=== PATIENT | male | born 1945 | race Caucasian/White ===

== ENCOUNTER 2019-06-19 06:00 | Outpatient (RCR) | payer MEDICARE, SELFPAY | END 2019-06-23 23:59 | disposition home or self-care (01) | LOC: GPT 06:00 | PROVIDERS: Family Provider Family Medicine; PCP Family Medicine; Referring Provider Nurse Practitioner Family; Visit Provider Nurse Practitioner Family | DX: M54.5 Low back pain (principal); M25.60 Stiffness of unspecified joint, not elsewhere classified | CPT/HCPCS: 97110; 97140; 97161; 97530; G0283 ==

== ENCOUNTER 2019-06-24 06:00 | Outpatient (RCR) | payer MEDICARE, SELFPAY | END 2019-07-24 23:59 | disposition home or self-care (01) | LOC: GPT 06:00 | PROVIDERS: Family Provider Family Medicine; PCP Family Medicine; Referring Provider Nurse Practitioner Family; Visit Provider Nurse Practitioner Family | DX: S39.012D Strain of muscle, fascia and tendon of lower back, subsequent encounter (principal); X58.XXXD Exposure to other specified factors, subsequent encounter | CPT/HCPCS: 97110; 97116; 97164; 97530; G0283 ==

== ENCOUNTER 2019-07-25 06:00 | Outpatient (RCR) | payer MEDICARE, SELFPAY | END 2019-08-23 23:59 | disposition home or self-care (01) | LOC: GPT 06:00 | PROVIDERS: Family Provider Family Medicine; PCP Family Medicine; Referring Provider Nurse Practitioner Family; Visit Provider Nurse Practitioner Family | DX: S39.012D Strain of muscle, fascia and tendon of lower back, subsequent encounter (principal); X58.XXXD Exposure to other specified factors, subsequent encounter | CPT/HCPCS: 97110; 97112; 97116; 97164; 97530; 97760; G0283 ==

== ENCOUNTER 2019-08-24 06:00 | Outpatient (RCR) | payer MEDICARE, SELFPAY | END 2019-09-23 23:59 | disposition home or self-care (01) | LOC: GPT 06:00 | PROVIDERS: PCP Family Medicine; Referring Provider Nurse Practitioner Family; Visit Provider Nurse Practitioner Family | DX: S39.012D Strain of muscle, fascia and tendon of lower back, subsequent encounter (principal); X58.XXXD Exposure to other specified factors, subsequent encounter | CPT/HCPCS: 97110; 97530 ==

== ENCOUNTER 2019-11-07 15:31 | Outpatient (CLI) | payer MEDICARE, SELFPAY ==
--- NOTE | 2019-11-07 15:43 | MR_ITS ---
WS: [id number] MRI LUMBAR SPINE NONCONTRAST TECHNIQUE: Sagittal T1, T2 and STIR imaging. Axial T1 and T2 imaging. CLINICAL INFORMATION: CHRONIC PAIN/WEAKNESS COMPARISON: None. FINDINGS: Mild lumbar curve. Compression fracture superior endplate L4 with mild edema and loss of approximatel y 25% vertebral body height. No retropulsion. Trace edema with mild compression superior end plate L5 . Chronic compression with anterior wedging involving the T12 and L1 vertebral bodies. L1-L2: Mild disc bulging with mild central canal stenosis. Mild facet arthropathy. Spinal canal and f oramen are patent. L2-L3: Shallow central disc protrusion with moderate to severe central canal stenosis. Moderate facet arthropathy with small facet effusions. Moderate right foraminal narrowing impinges the exiting righ t L2 nerve root. Left foramen is patent. L3-L4: Central disc protrusion with moderate to severe central canal stenosis. Moderate facet arthrop athy. Moderate right and mild left foraminal narrowing. L4-L5: Mild disc bulging with mild central canal stenosis. Impingement subarticular recess bilaterall y. Moderate to advanced facet arthropathy. Moderate right and mild left foraminal narrowing. L5-S1: No significant disc bulging. Spinal canal and foramen are patent. Mild facet arthropathy. Bilateral renal cysts. MR/MR lumbar spine wo con* [id number] IMPRESSION: 1. Mild acute to subacute compression involving superior endplate L4 with loss of approximately 25% vertebral body height. No significant retropulsion. Trace edema in the superior endplate L5 with slight compression. 2. Chronic biconcave compression T12 and L1. 3. Severe central canal stenosis L2-3. Moderate to severe central canal stenos is L3-4. 4. Mild central canal stenosis L4-5 with impingement on the traversing L5 nerv e roots bilaterally. 5. Moderate foraminal narrowing worse at right L2-3, right L3-4, and right L4- 5. 6. Moderate facet arthropathy L4-L5.
== END 2019-11-07 15:32 | disposition home or self-care (01) ==
LOC: RADWPI 15:34
PROVIDERS: Family Provider Family Medicine; PCP Family Medicine; Visit Provider Nurse Practitioner Family
DX: M54.5 Low back pain (principal); G89.29 Other chronic pain; R53.1 Weakness; M47.816 Spondylosis without myelopathy or radiculopathy, lumbar region; M48.061 Spinal stenosis, lumbar region without neurogenic claudication; M48.55XA Collapsed vertebra, not elsewhere classified, thoracolumbar region, initial encounter for fracture
CPT/HCPCS: 72148

== ENCOUNTER → 2019-11-09 09:00 | Outpatient (BNVA) | payer MEDICARE, SELFPAY | PROVIDERS: Family Provider Family Medicine; PCP Family Medicine; Visit Provider Nurse Practitioner Family | DX: M54.9 Dorsalgia, unspecified (principal); E56.9 Vitamin deficiency, unspecified; M43.9 Deforming dorsopathy, unspecified; I10 Essential (primary) hypertension; M79.10 Myalgia, unspecified site | CPT/HCPCS: 80053; 80061; 82306; 84439; 84443 ==

== ENCOUNTER → 2020-03-04 11:30 | Outpatient (BNVA) | payer MEDICARE, SELFPAY | PROVIDERS: Family Provider Family Medicine; PCP Nurse Practitioner Family; Visit Provider Nurse Practitioner Family | DX: Z20.828 Contact with and (suspected) exposure to other viral communicable diseases (principal) | CPT/HCPCS: 87635 ==